=== PATIENT | female | born 1940 ===

== ENCOUNTER 2017-11-30 13:17 | Day surgery (SDC) | payer MEDICARE ==
[~2017-11-30 13:17] MED LIST: AMLO5TAB2 PO; ASPI81CH6 CHEW; ATOR20TA15 PO; EZET1TAB8 PO; METO50TA PO; PREV15CA20 PO; TERA2CAP3 PO
== END 2017-11-30 13:45 | disposition home or self-care (01) ==
LOC: HROP 13:17 → HRIP 13:22 → HROP 13:45
PROVIDERS: ATTEND Radiology Body Imaging
DX: Z09 Encounter for follow-up examination after completed treatment for conditions other than malignant neoplasm (principal)